=== PATIENT | male | born 1980 | race Two or more races ===

== ENCOUNTER 2024-01-04 14:52 | Outpatient (REF) | payer OTHER, SELFPAY ==
--- NOTE | ~2024-01-04 | XR_ITS ---
EXAMINATION: X-RAY LEFT KNEE CLINICAL INFORMATION: Pain. TECHNIQUE: 2 views of the left knee. COMPARISON: None. FINDINGS: Small joint effusion. Mild narrowing of the medial compartment. Tiny tricompartmental osteophytes. XR/XR knee LT 2V IMPRESSION: Mild degenerative changes. Electronically signed by: Radha Mari MD 01/29/2024 11:57 AM EDT
[2024-01-04 16:17] LABS: Alanine Aminotransferase 17 U/L (0-40); Albumin Level 3.9 g/dL (3.5-5.0); Alkaline Phosphatase 82 U/L (39-117); Anion Gap 10 (12-20); Aspartate Amino Transferase 20 U/L (5-37); Bilirubin Direct 0.1 mg/dL (0.0-0.5); Bilirubin Total 0.4 mg/dL (0.0-1.0); Blood Urea Nitrogen 15 mg/dL (9-16); Calcium 9.3 mg/dL (8.4-10.2); Carbon Dioxide 26 mmol/L (22-29); Chloride 108 mmol/L (96-108); Cholesterol 154 mg/dL (<200); Estimated Glomerular Filt Rate > 60; Glucose Random 103 mg/dL (60-115); HDL Cholesterol 34 mg/dL (>40); LDL Cholesterol Calculated 88 mg/dL (<100); Potassium 3.8 mmol/L (3.3-5.1); Sodium 140 mmol/L (135-145); Total Protein 7.6 g/dL (6.5-8.0); Triglycerides 162 mg/dL (<150)
== END 2024-01-04 14:53 | disposition home or self-care (01) ==
LOC: HO.LAB 14:52
PROVIDERS: PCP Student in an Organized Health Care Education/Training Program; Visit Provider Student in an Organized Health Care Education/Training Program
DX: M25.562 Pain in left knee (principal); G89.29 Other chronic pain; G40.909 Epilepsy, unspecified, not intractable, without status epilepticus
CPT/HCPCS: 36415; 73560; 80048; 80061; 80076

== ENCOUNTER 2025-01-16 09:31 | Outpatient (REF) | payer OTHER, SELFPAY ==
--- OUTSIDE RECORDS SUMMARY | 2025-01-16 10:15 | XMS_ITS | Encounter Summary ---
Author Organization [employer] Address [address] [facility] 7t [place] [address] Care Team Providers Care Incoming Inspector Name Role Phone Cecy Rivera MD Primary Care Provider [phone] Reason for Visit * Reason Comments Annual Exam Encounter Details Date Type Department Care Team ([facility] Contact Info) Description 01/16/2025 10:15 AM EDT Office Visit [facility] [address] [place], [place] [phone] Cecy Rivera MD [address] [place] [address] Seizure disorder (CMS/HCC) (HCC) (Primary Dx); Obesity without serious comorbidity, unspecified class, unspecified obesity type; Encounter for annual wellness visit Social History Tobacco Use Types Packs/Day Years Used Date Smoking Tobacco: Former Cigarettes Q uit: 2019 Smokeless Tobacco: Never Tobacco Cessation:Counseling Given: Not Answered Alcohol Use Standard Drinks/Week Comments Never 0 (1 standard drink = 0.6 oz pur e alcohol) Depression Answer Date Recorded Patient Health Questionnaire-9 Score 7 01/16/2025 Patient Health Questionnaire-9 Score 7 01/16/2025 Last PHQ-9: Questionnaire Data Not on file 1 Housing Stability Answer Date Recorded What is your housing situation today? I have stephanie marie 01/09/[address] you li ve. Do you have problems with any of the following? None of the above 01/09/2025 Food Insecurity Answer Date Recorded Within the past 12 months, y ou worried that your food would run out before you got money to buy more: Never True 01/09/2025 Within the past 12 months,th e food you bought just didn't last and you didn't have enough money to get more: Never True Transportation Answer Date Recorded In the past 12 months, has l ack of transportation kept you from medical appts, meetings, work or from getting things needed for daily living? No 01/09/2025 Utilities Answer Date Recorded In the past 12 months, has t he electric, gas, oil or water company threatened to shut off services in your home? No 01/09/2025 Depression Answer Date Recorded Patient Health Questionnaire-2 Score 3 01/16/2025 Internet Access Answer Date Recorded Internet Access Q1 Yes 01/09/2025 Internet Access Q2 Not on file 01/09/2025 Sex and Gender Information Value Date Recorded Sex Assigned at Male 02/14/2022 10:18 AM EDT Legal Sex Male 10:18 AM EDT Gender Identity Male 02/14/2022 10:18 AM EDT Sexual Orientation Choose not to disclose 2021 10:18 AM EDT documented as of this encounter Last Filed Vital Signs Vital Sign Reading Time Taken Comments Blood Pressure 125/75 01/16/2025 9:15 AM EDT Pulse 76 01/16/2025 9:15 AM EDT Temperature 36.2 C (97.1 F) 01/16/2025 9:15 AM EDT Respiratory Rate 18 01/16/2025 9:15 AM EDT Oxygen Saturation 97% 01/16/2025 9:15 AM EDT Inhaled Oxygen Concentration - - Weight 92.5 kg (204 lb) 01/16/2025 9:15 AM EDT Height 166.4 cm (5' 5.5 ) 01/16/2025 9:15 AM EDT Body Mass Index 33.43 01/16/2025 9:15 AM EDT documented in this encounter Functional Status * Over the past 2 weeks, how often have you been bothered by any of the following problems? Question Answer Date of Assessment Author Patient Health Questionnaire -2 Score 3 01/16/2025 9:17 AM EDT Narda Gomez MA * Little interest or pleasure in doing things Answer Date of Assessment Author Several days 01/16/2025 9:17 AM EDT Mary Gomez MA * Feeling down, depressed, or hopeless Answer Date of Assessment Author More than half the days 01/16/2025 9:17 AM EDT Narda Arteaga MA * Trouble falling or staying asleep, or sleeping too much Answer Date of Assessment Author Not at all 01/16/2025 9:17 AM EDMary Echeverria MA * Feeling tired or having little energy Answer Date of Assessment Author Several days 01/16/2025 9:17 AM Mary Albright MA * Poor appetite or overeating Answer Date of Assessment Author Not at all 01/16/2025 9:17 AM EDT Mary Gomez MA * Feeling bad about yourself - or that you are a failure or have let yourself or your family down Answer Date of Assessment Author More than half the days 01/16/2025 9:17 AM EDT Narda Arteaga MA * Trouble concentrating on things, such as reading the newspaper or watching television Answer Date of Assessment Author Not at all 01/16/2025 9:17 AM Mary Albright MA * Moving or speaking so slowly that other people could have noticed? Or the opposite - being so fidgety or restless that you have been moving around a lot more than usual. Answer Date of Assessment Author Not at all 01/16/2025 9:17 AM Mary Albright MA * Thoughts that you would be better off or hurting yourself in some way Answer Date of Assessment Author Several days 01/16/2025 9:17 AM Mary Albright MA * Patient Health Questionnaire-9 Score Answer Date of Assessment Author 7 01/16/2025 9:17 AM Mary Albright MA * How difficult have these problems made it for you to do your work, take care of things at home, or get along with other people? Answer Date of Assessment Author Not difficult at all 01/16/2025 9:17 AM Narda Caballero MA documented as of this encounter Progress Notes * Cecy Rivera MD - 01/16/2025 10:15 AM EDT Subjective Patient ID: Adelina Johnson is a 44 y.o. male who presents for Annual Exam. Well Adult Physical Patient here for a comprehensive physical exam. No new concerns No new seizure activity Review of Systems Constitutional: Negative. Respiratory: Negative. Cardiovascular: Negative. Gastrointestinal: Negative. Genitourinary: Negative. Objective Physical Exam Constitutional: Appearance: Normal appearance. Cardiovascular: Rate and Rhythm: Normal rate and regular rhythm. Pulmonary: Effort: Pulmonary effort is normal. Breath sounds: Normal breath sounds. Neurological: General: No focal deficit present. Mental Status: He is alert. Psychiatric: Mood and Affect: Mood normal. Behavior: Behavior normal. Assessment/Plan Diagnoses and all orders for this visit: Seizure disorder (CMS/HCC) ([facility]) Comments: Stable No meds Orders: - Basic Metabolic Panel; Future Obesity without serious comorbidity, unspecified class, unspecified obesity type Maintain a low-sodium diet (less than 2 grams per day). Maintain a regular cardiovascular exercise program. Advised to maintain a low-fat, low-cholesterol diet. Counseled regarding importance of weight loss. Counseled re: potential co-morbidities including cardiovascular disease. - Lipid Panel, Standard; Future - Basic Metabolic Panel; Future - Hepatic Function Panel; Future Encounter for annual wellness visit documented in this encounter Plan of Treatment Scheduled Orders Name Type Priority Associated Diagnoses Orde r Schedule Lipid Panel, Standard Lab Routine Obesity Without Serious Comorbidity, Unspecified Class, Unspecified Obesity Type Expected: 01/16/2025 (Approximate), Expires: 01/16/2026 Basic Metabolic Panel Lab Routine Seizure disorder (CMS/HCC) Obesity Without Serious Comorbidity, Unspecified Class, Unspecified Obesity Type Expected: 01/16/2025 (Approximate), Expires: 01/16/2026 Hepatic Function Panel Lab Routine Obesity Without Serious Comorbidity, Unspecified Class, Unspecified Obesity Type Expected: 01/16/2025 (Approximate), Expires: 01/16/2026 documented as of this encounter Visit Diagnoses Diagnosis Seizure disorder (CMS/HCC) (HCC)- Primary Unspecified epilepsy without mention of intractable epilepsy Obesity without serious comorbidity, unspecified class, unspecified obesity type Encounter for annual wellness visit documented in this encounter Additional Health Concerns Assessment Noted Time PHQ-9 Depression Total Score: 7 01/17/20 25 9:17 AM EDT documented as of this encounter Care Teams Incoming Inspector Relationship Specialty Start Date End Date Cecy Rivera MD [address] [place] [address] PCP - General Family Medicine 09/01/15 documented as of this encounter
--- OUTSIDE RECORDS SUMMARY | 2025-01-16 10:30 | XMS_ITS | Clinical Summary ---
Author Organization [employer] Address [address] [facility] [address] [place] [address] Care Team Providers Care Air Pollution Analyst Name Role Phone Cecy Rivera MD Primary Care Provider [phone] Allergies Active Allergy Reactions Criticality Noted Date Comments Diazepam High 09/01/2015 Other reaction(s): to long to wake up Other Reaction(s): Not available Medications No known medications Active Problems Problem Noted Date Diagnosed Date Seizure disorder (CMS/HCC) 09/01/2015 Encounters Date Type Department Care Team Description 01/16/2025 10:15 AM EDT Office Visit [facility] [address] [place] [address] Cecy Rivera MD Seizure disorder (CMS/HCC) (HCC) (Primary Dx); Obesity without serious comorbidity, unspecified class, unspecified obesity type; Encounter for annual wellness visit 01/16/2025 Travel 01/15/2025 Telephone [facility] [address] [place] [address] Cecy Rivera MD Chart Prep 01/09/2025 Patient Outreach [facility] [address] [place] [address] Cecy Rivera MD Pre-visit Planning (SDOH screening negative and Tobacco screening negative) 01/09/2025 Travel from Last 3 Months Immunizations Immunization Administration Dates Next Due Influenza injectable quadriv alent IIV4 with preservative 02/29/2016 Tdap 09/22/2022 Social History Tobacco Use Types Packs/Day Years [...] not to disclose 2021 10:18 AM EDT Last Filed Vital Signs Vital Sign Reading [...] Mass Index 33.43 01/16/2025 9:15 AM EDT Plan of Treatment Health Maintenance Due Date Last Done Comments Family Planning (PISQ) 1997 HPV Vaccines (1 - Male 3-dos e series) 1997 Hepatitis B Vaccines (1 of 3 - 19+ 3-dose series) 2001 Influenza Vaccine (#1) 2025 02/29/2016 Postp oned from 12/16/2024 (Patient Refused) Disability Screening 01/09/2026 01/09/2025 SDOH Screening 01/09/2026 01/09/2025 Alcohol/Substance Use Screening 01/16/2026 01/16/2025 COVID-19 Vaccine (4 - 2024-2 6 season) 2026 02/09/2021, 08/02/2020, 07/11/2020 Postponed from 12/16/2024 (Patient Refused) Depression Screening 01/16/2026 01/16/2025, 01/16/2025 Tobacco Screening 01/16/2026 01/16/2025 Lipid Panel 01/03/2029 01/04/2024, 09/22/2022 Zoster Vaccines (1 of 2) 2032 DTaP/Tdap/Td Vaccines (2 - T d or Tdap) 09/22/2032 09/22/2022 RSV Patients and Patients Aged 60 years or older (1 - 1-dose 75+ series) 2057 HIV Screening Completed 09/22/2022 Hepatitis C Screening Completed 09/22/2022 HIB Vaccines Aged Out No longer eligi ble based on patient's age to complete this topic Hepatitis A Vaccines Aged Out No long er eligible based on patient's age to complete this topic IPV Vaccines Aged Out No longer eligi ble based on patient's age to complete this topic Meningococcal B Vaccine Aged Out No l onger eligible based on patient's age to complete this topic Meningococcal Vaccine Aged Out No cesar yohan eligible based on patient's age to complete this topic Pneumococcal Vaccine: Pediatrics (0 to 5 Years) and At-Risk Patients (6 to 49) Years Aged Out No longer eligible b ased on patient's age to complete this topic RSV under 20 months Aged Out No longe r eligible based on patient's age to complete this topic Rotavirus Vaccines Aged Out No longer eligible based on patient's age to complete this topic Procedures Procedure Name Priority Date/Time Associated Diagnosis Comments LIPID PANEL, STANDARD Routine 01/04/2024 3:00 PM EDT Seizure disorder (CMS/HCC) HEPATITIS C AB W/REFL TO HCV RNA, QN, PCR Routine 09/22/2022 9:55 AM EDT PE (physical exam), annual HIV 1 RNA, QN PCR W/RFL KEVON (RTI,PI,INTEGRASE) Routine 09/22/2022 9:55 AM EDT PE (physical exam), annual from Last 3 Months or Most Recently Relevant to Health Maintenance Results * (ABNORMAL) Lipid Panel, Standard (01/04/2024 3:00 PM EDT) Triglycerides 162(H) <150 mg/dL [facility] Comment:Desirable Triglyceri de: less than 150 mg/dLBorderline High Triglyceride 150-199 mg/dLHigh Triglyceride: 200-499 mg/dLVery High Triglyceride: greater than or equal to 5OO mg/dL Cholesterol 154 <200 mg/dL [facility] Comment:Desirable Cholestero l: less than 200 mg/dLBorderline High Cholesterol: 200-239 mg/dLHigh Cholesterol: greater than 239 mg/dL LDL Cholesterol Calculated 88 <100 mg/dL [facility] Comment:Desirable LDL: less than 100 mg/dLNear Optimal/Above Optimal LDL: 110- 129 mg/dLBorderline High LDL: 130-159 mg/dLHigh LDL: 160-189 mg/dLVery High LDL: greater than or equal to 190 mg/dL HDL Cholesterol 34(L) >40 mg/dL [facility] Comment:Desirable HDL: great er than 40 mg/dL Note: This HDL assay may give artificially low results in patients with liver disease. Blood Venous blood specimen / Unknown 01/04/2024 3:00 PM EDT 01/04/2024 3:06 PM EDT Cecy Rivera MD LAB BLOOD ORDERABLES Final Resul t [facility] [address] [place] [address] [phone] * HIV-1 RNA, Quantitative, Real-Time PCR with Reflex to Genotype (RTI, PI, Integrase) (09/22/2022 9:55 AM EDT) HIV 1 RNA, QN PCR NOT DETECTED copies/mL [facility], HIV 1 RNA, QN PCR NOT DETECTED Log copies/mL [facility], Comment: REFERENCE RANGE: NOT DETECTED copies/mL NOT DETECTED Log copies/mL This test was performed using Real-Time Polymerase Chain Reaction. Reportable range is 20 to 10,000,000 copies/mL (1.30-7.00 Log copies/mL). 09/22/2022 9:55 AM EDT 09/22/2022 9:56 AM EDT Narrative [facility] - 09/29/2022 11:17 PM EDT FASTING:YES FASTING: YES Result [facility] Cecy Rivera MD LAB BLOOD ORDERABLES Final Resul t Performing Organization Address City/[facility] Co de Phone Number [address], [place] [address] [facility], [address] [place] [address] * Hepatitis C Antibody with Reflex to HCV, RNA, Quantitative, Real-Time PCR (09/22/2022 9:55 AM EDT) Hepatitis C Antibody NON-REACT GRISEL NON-REACT GRISEL [facility] [place] [facility] Index 0.15 <1.00 [facility] [place] [facility] Comment: HCV antibody was non-reactive. There is no laboratory evidence of HCV infection. In most cases, no further action is required. However, if recent HCV exposure is suspected, a test for HCV RNA (test code 85821) is suggested. For additional information please refer to http://education.Solidarium.KnoCo/faq/COS71k6 (This link is being provided for informational/ educational purposes only.) Blood Venous blood specimen / Unknown 09/22/2022 9:55 AM EDT 09/22/2022 9:56 AM EDT Narrative [facility] - 09/29/2022 11:17 PM EDT FASTING:YES FASTING: YES us Cecy Rivera MD LAB BLOOD ORDERABLES Final Resul t [facility] [address], [place] [address] [facility] [address] [place] [address] from Last 3 Months or Most Recently Relevant [place] [id number] [facility] , [address] [place] [address] [place] [id number] [place] [id number] [place] [address] Care Teams Air Pollution Analyst Relationship Specialty Start Date End Date Cecy Rivera MD [address] [place] [address] [place] [id number] PCP - General Family Medicine 09/01/15
--- OUTSIDE RECORDS SUMMARY | 2025-01-16 10:30 | XMS_ITS | Encounter Summary ---
Author Organization [employer] Address [address] [facility] [place] [address] Care Team Providers Care Assistant Curator Name Role Phone Cecy Rivera MD Primary Care Provider [phone] Encounter Details Date Type Department Care Team (Latest Contact Info) Description 01/16/2025 Travel Social History Tobacco Use Types Packs/Day Years Used Date Smoking Tobacco: Former Cigarettes Q uit: 2019 Smokeless Tobacco: Never Alcohol Use Standard Drinks/Week Comments Never 0 [...] AM EDT documented as of this encounter Functional Status * Over the [...] AM EDT Mary Gomez MA * Feeling tired or having little energy Answer Date of Assessment Author Several days 01/16/2025 9:17 AM EDT Mary Gomez MA * Poor appetite or overeating Answer [...] 9:17 AM EDT Mary Gomez MA * Moving or speaking so slowly that other people could have noticed? Or the opposite - being so fidgety or restless that you have been moving around a lot more than usual. Answer Date of Assessment Author Not at all 01/16/2025 9:17 AM EDT Mary Gomez MA * Thoughts that you would be better off or hurting yourself in some way Answer Date of Assessment Author Several days 01/16/2025 9:17 AM EDMary Echeverria MA * Patient Health Questionnaire-9 Score Answer Date of Assessment Author 7 01/16/2025 9:17 AM EDT Mary Gomez MA * How difficult have these problems made it for you to do your work, take care of things at home, or get along with other people? Answer Date of Assessment Author Not difficult at all 01/16/2025 9:17 AM EDNarda Dyson MA documented as of this encounter Plan of Treatment Not on file documented as of this encounter Visit Diagnoses Not on filedocumented in this encounter Additional Health Concerns Assessment Noted Time PHQ-9 Depression Total Score: 7 01/17/20 25 9:17 AM EDT documented as of this encounter Care Teams Assistant Curator Relationship Specialty Start Date End Date Cecy Rivera MD [address] [place] [id number] PCP - General Family Medicine 09/01/15 documented as of this encounter
--- OUTSIDE RECORDS SUMMARY | 2025-01-16 10:30 | XMS_ITS | Encounter Summary ---
Author Organization [employer] Address [address] [facility] 7t [place] [address] Care Team Providers Care Product Marketing Executive Name Role Phone Cecy Rivera MD Primary Care Provider [phone] Reason for Visit * Reason Onset Date Comments Chart Prep 01/15/2025 Encounter Details Date Type Department Care Team ([facility] Contact Info) Description 01/15/2025 Telephone [facility] [address] [place], [place] [phone] Cecy Rivera MD [address] [place] [address] Chart Prep Social History Tobacco Use Types Packs/Day Years [...] AM EDT documented as of this encounter Miscellaneous Notes * Telephone Encounter - Olena Pritchard MA - 01/15/2025 9:47 AM EDT Chart Prep Labs: done Images: not applicable Referrals: not applicable Vaccines due: Covid, Flu, Hep B, and HPV Screenings: PISQ Overdue care gaps: SBIRT, PHQ-9, and Tobacco documented in this encounter Plan of Treatment Not on file documented as of this encounter Visit Diagnoses Not on filedocumented in this encounter Additional Health Concerns Assessment Noted Time PHQ-9 Depression Total Score: 0 01/04/20 24 8:59 AM EDT documented as of this encounter Care Teams Product Marketing Executive Relationship Specialty Start Date End Date Cecy Rivera MD [address] [place] [address] PCP - General Family Medicine 09/01/15 documented as of this encounter
[2025-01-16 15:09] LABS: Alanine Aminotransferase 33 U/L (0-40); Albumin Level 4.2 g/dL (3.5-5.0); Alkaline Phosphatase 89 U/L (39-117); Anion Gap 9 (12-20); Aspartate Amino Transferase 31 U/L (5-37); Blood Urea Nitrogen 14 mg/dL (9-16); Calcium 8.9 mg/dL (8.4-10.2); Carbon Dioxide 26 mmol/L (22-29); Chloride 109 mmol/L (96-108); Cholesterol 180 mg/dL (<200); Estimated Glomerular Filt Rate > 60; HDL Cholesterol 42 mg/dL (>40); Potassium 4.0 mmol/L (3.3-5.1); Sodium 140 mmol/L (135-145); Total Protein 7.6 g/dL (6.5-8.0); Triglycerides 91 mg/dL (<150)
== END 2025-01-16 09:32 | disposition home or self-care (01) ==
LOC: HO.CHCLDS 09:31
PROVIDERS: Visit Provider Student in an Organized Health Care Education/Training Program
DX: G40.909 Epilepsy, unspecified, not intractable, without status epilepticus (principal); E66.9 Obesity, unspecified
CPT/HCPCS: 36415; 80048; 80061; 80076